=== PATIENT | female | born 1995 | race Caucasian/White ===

== ENCOUNTER 2016-11-25 17:13 | Emergency (ER) | payer SELFPAY ==
[~2016-11-25] VITALS: Ht 154.9 cm; Wt 52.0 kg
[~2016-11-25 17:13] MED LIST: NO MEDS
[2016-11-25 17:46] VITALS: Ht 154.9 cm; Wt 52.0 kg
== END 2016-11-25 21:20 | disposition left against medical advice (07) ==
LOC: FTE 17:13
DX: Z53.21 Procedure and treatment not carried out due to patient leaving prior to being seen by health care provider (principal)

== ENCOUNTER 2016-12-29 23:35 | Emergency (ER) | payer MEDICAID, OTHER ==
[~2016-12-29] VITALS: Ht 157.5 cm; Wt 51.0 kg
[2016-12-29 23:38] VITALS: Ht 157.5 cm; Wt 51.0 kg
[2016-12-30] MEDS ORDERED: ACETAMINOPHEN 500 MG TAB PO STA
[2016-12-30] MEDS ORDERED: IBUPROFEN 600 MG TAB PO ONE
--- NOTE | 2016-12-30 00:14 | ERD ---
ER Documentation Chief Complaint Date/Time DATE: 12/30/16 TIME: 00:13 Chief Complaint cough w/ fever x 2 days HPI 21-year-old female presents to emergency department for complaints of cough and fever for 2 days. Patient has been having dry cough, does not follow any phlegm or blood. Patient does not any shortness breath or wheezing. Patient has been having runny nose nasal congestion clear nasal discharge. Patient took over-the- counter DayQuil tablets symptoms with mild relief. Patient does not have any sick contacts. ROS All systems reviewed and are negative except as per history of present illness. Medications Home Meds Active Scripts Ibuprofen* (Motrin*) 600 Mg Tab, 600 MG PO Q6H Y for PAIN AND OR ELEVATED TEMP, #30 TAB Prov:IRENE UNGER NP 12/30/16 Cetirizine Hcl* (Zyrtec*) 10 Mg Capsule, 10 MG PO DAILY, #30 TAB.CHEW Prov:IRENE UNGER NP 12/30/16 Moaextcsomw-K-Lwibukunhz Hb* (Guaifenesin* DM Syrup) 120 Ml Syrup, 10 ML PO Q4H Y for COUGH, #120 ML Prov:IRENE UNGER NP 12/30/16 Albuterol Sulfate* (Proair HFA*) 8.5 Gm Hfa.aer.ad, 2 PUFF INH Q4H Y for WHEEZING AND SOB, #1 INHALER Prov:IRENE UNGER NP 12/30/16 Reported Medications [No Meds] No Conflict Check 12/08/12 Allergies Allergies: Coded Allergies: No Known Drug Allergies (Verified Allergy, 12/08/12) PMhx/Soc Medical and Surgical Hx: pt denies Medical Hx, pt denies Surgical Hx History of Surgery: No Hx Neurological Disorder: No Hx Respiratory Disorders: No Hx Cardiac Disorders: No Hx Psychiatric Problems: No Hx Miscellaneous Medical Probl: No Hx Alcohol Use: No Hx Substance Use: No Hx Tobacco Use: No Smoking Status: Never smoker FmHx Family History: No coronary disease, No diabetes, No other Physical Exam Vitals Vital Signs Date Time Temp Pulse Resp B/P Pulse Ox O2 Delivery O2 Flow Rate FiO2 12/30/16 01:15 99.7 84 20 101/59 98 12/29/16 23:38 100.2 101 20 118/68 100 Physical Exam GENERAL: The patient is well developed and appropriate for usual state of health, in no apparent distress. HEENT: Atraumatic. Ears: Normal tympanic membrane, no erythema or bulging. No ear canal swelling. No ear discharge. Nose: Erythematous nasal turbinates with clear nasal discharge. Throat: oropharynx erythematous with postnasal drip. No tonsillar swelling or tonsillar exudates. No lymphadenopathy. CHEST: Clear to auscultation bilaterally. There are no rales, wheezes or rhonchi. HEART: Regular rate and rhythm. No murmurs, clicks, rubs or gallops. No S3 or S4. ABDOMEN: Soft, nontender and nondistended. Good bowel sounds. No rebound or guarding. No gross peritonitis. No gross organomegaly or masses. No Saldaña sign or McBurney point tenderness. BACK: No midline or flank tenderness. EXTREMITIES: Equal pulses bilaterally. There is no peripheral clubbing, cyanosis or edema. No focal swelling or erythema. Full range of motion. Grossly neurovascularly intact. NEURO: Alert and oriented. Cranial nerves 2-12 intact. Motor strength in all 4 extremities with 5/5 strength. Sensation grossly intact. Normal speech and gait. SKIN: There is no apparent rash or petechia. The skin is warm and dry. HEMATOLOGIC AND LYMPHATIC: There is no evidence of excessive bruising or lymphedema. No gross cervical, axillary, or inguinal lymphadenopathy. Results 24 hrs Current Medications Medications (Trade) Dose Ordered Sig/Asad Route PRN Reason Start Time Stop Time Status Last Admin Dose Admin Acetaminophen (Tylenol Tab) 500 mg ONCE STAT PO 12/30/16 00:00 12/30/16 00:05 DC 12/30/16 00:21 Ibuprofen (Motrin) 600 mg ONCE ONCE PO 12/30/16 00:00 12/30/16 00:05 DC 12/30/16 00:21 Patient was given medicines for fever control here in the emergency department. After treatment, patient temperature improved and lower. Patient appears well and is hemodynamically stable. PROCEDURE: XR Chest. CLINICAL INDICATION: Cough. TECHNIQUE: Portable AP view of the chest was obtained. COMPARISON: None. FINDINGS: The cardiomediastinal silhouette is within normal limits. The lungs are clear. The costophrenic angles are sharp. The trachea and central bronchi appear patent. The osseous structures are intact with no evidence for acute abnormality. RPTAT:HJJR IMPRESSION: No evidence for acute intrathoracic pathology. Antoine Milligan Physician Date Time Electronically viewed and signed by Antoine Milligan Physician on 12/30/2016 00:49 JR/ CC: IRENE UNGER DISTRIBUTION TECHNICIAN Procedures/MDM Medical Decision Making: Patient symptoms are most likely consistent with acute bronchitis, which viral in origin. There is low suspicion for Pneumonia at this time since patients lungs sounds are clear, patient O2 saturation is normal and patient doesnt show any respiratory distress. Patients chest xray doesnt show infiltrates or any other cardiopulmonary emergencies at this time. There is low suspicion for other cardiopulmonary emergencies at this time such as CHF, Pulmonary Embolism, Pneumothorax, or any other cardiopulmonary emergencies at this time. There is low suspicion for sepsis. Patient appears well and is hemodynamically stable. Fever is controlled with medicines. Disposition: Home. Condition: Stable Prescriptions: Guaifenesin DM Zyrtec ibuprofen albuterol Instructions: Patient is advised to take medications as prescribed. Patient is advised to rest. Patient advised to increase fluid intake, do humidifier at home and if possible, do salt water gargles. Patient is advised that if symptoms are worse, shortness of breath, uncontrolled fever, stridor, vomiting, worst signs and symptoms to return to emergency department immediately. Otherwise, patient is advised to follow up with primary doctor in 5-7 days. Departure Diagnosis: Primary Impression: Acute bronchitis Bronchitis organism: unspecified organism Qualified Code: J20.9 - Acute bronchitis, unspecified organism Condition: Stable Patient Instructions: Bronchitis, No Antibiotic (Adult) Additional Instructions: Patient is advised to take medications as prescribed. Patient is advised to rest. Patient advised to increase fluid intake, do humidifier at home and if possible, do salt water gargles. Patient is advised that if symptoms are worse, shortness of breath, uncontrolled fever, stridor, vomiting, worst signs and symptoms to return to emergency department immediately. Otherwise, patient is advised to follow up with primary doctor in 5-7 days. IRENE UNGER NP Dec 30, 2016 00:14
--- NOTE | 2016-12-30 00:49 | RADRPT ---
PROCEDURE: XR Chest. CLINICAL INDICATION: Cough. TECHNIQUE: Portable AP view of the chest was obtained. COMPARISON: None. FINDINGS: The cardiomediastinal silhouette is within normal limits. The lungs are clear. The costophrenic an gles are sharp. The trachea and central bronchi appear patent. The osseous structures are intact w ith no evidence for acute abnormality. RPTAT:HJJR IMPRESSION: No evidence for acute intrathoracic pathology. Physician Oral Date Time Electronically viewed and signed by Antoine Milligan Physician on 12/30/2016 00:49 JR/
[2016-12-30] MEDS ORDERED: GUAI120S26 PO (01:07)
[2016-12-30] MEDS ORDERED: IBUP-1542 PO (01:07)
[2016-12-30] MEDS ORDERED: ALBU8.5H3 INH (01:07)
[2016-12-30] MEDS ORDERED: CETI10CA PO (01:07)
[2016-12-30 01:15] VITALS: BP 101/59; PULSE 84; RESP 20; TEMP 99.7
== END 2016-12-30 01:15 | disposition home or self-care (01) ==
LOC: FTE 23:35
DX: J20.9 Acute bronchitis, unspecified (principal)
CPT/HCPCS: 71010; Z7610

== ENCOUNTER 2018-03-29 15:36 | Emergency (ER) | END 2018-03-29 19:29 | disposition home or self-care (01) ==